=== PATIENT | female | born 1995 | race Caucasian/White ===

== ENCOUNTER 2018-07-20 12:24 | Emergency (ER) | payer SELFPAY ==
[~2018-07-20 12:24] MED LIST: DOXY100 PO; IBUP400 PO; PRED20 PO; SKIEMOTO TOP
== END 2018-07-20 13:56 | disposition left against medical advice (07) ==
LOC: ER 12:24
DX: Z53.21 Procedure and treatment not carried out due to patient leaving prior to being seen by health care provider (principal)

== ENCOUNTER → 2021-09-09 | Outpatient (CLI) | payer OTHER ==
[2021-09-11 02:08] LABS: CHLAMYDIA TRACHOMATIS, NAA Negative (Negative)
== END | disposition home or self-care (01) ==
LOC: LAB 15:10 → LAB SHORT 15:10
PROVIDERS: Family Medicine
DX: Z11.3 Encounter for screening for infections with a predominantly sexual mode of transmission (principal)
CPT/HCPCS: 87491; 87591

== ENCOUNTER 2022-11-07 16:54 | Emergency (ER) | payer OTHER ==
[~2022-11-07] VITALS: Ht 154.9 cm; Wt 61.2 kg
[2022-11-07 17:21] VITALS: BP 128/80
[2022-11-07] MEDS ORDERED: PERM5TC TOP (18:15)
== END 2022-11-07 18:19 | disposition home or self-care (01) ==
LOC: ER 16:54
DX: R21 Rash and other nonspecific skin eruption (principal)
CPT/HCPCS: 99282; A9270